=== PATIENT | male | born 1970 ===

== ENCOUNTER 2018-01-11 12:09 | Day surgery (SDC) | payer OTHER ==
[2018-01-09 10:47] VITALS: BMI 26.6
[2018-01-11] MEDS ORDERED: Ciprofloxacin 400mg/200ml D5W 400 MG/200 ML BAG IVPB ONE (14:08)
[2018-01-11] MEDS ORDERED: Iohexol 240 (50 ml) ONE (14:09)
[2018-01-11] MEDS ORDERED: Lidocaine 2% Jelly (Uro-Jet) ONE (14:09)
[2018-01-11] MEDS ORDERED: Propofol 10 mg/ml Inj (20 ML) ONE (14:18)
[2018-01-11] MEDS ORDERED: Midazolam 2 MG/2 ML VIAL ONE (14:19)
[2018-01-11] MEDS ORDERED: HYDROmorphone 0.5 mg/0.5 ml ISec IVP PRN (15:15)
[2018-01-11 15:33] VITALS: O2SAT 100
[2018-01-11] MEDS ORDERED: HYDROmorphone 0.5 mg/0.5 ml ISec ONE (15:38)
--- NOTE | 2018-01-11 16:24 | RAD ---
Date of service: 01/11/2018 PROCEDURE: Intraoperative Fluoroscopy. HISTORY: LEFT URETERAL STONE FINDINGS: Fluoroscopic assistance was provided. Fluoroscopy time = 73.7 sec. Radiation dose = 0.93275 mGy-cm. The please refer to the operative report from [facility].
[2018-01-11 16:42] VITALS: RESP 18
[2018-01-11 18:39] VITALS: BP 116/62; PULSE 84; TEMP 97.8
--- NOTE | 2018-01-12 06:54 | OP ---
PROCEDURE DATE: 01/11/2018 PREOPERATIVE DIAGNOSES: Left upper ureteral stone, ureteral stent. POSTOPERATIVE DIAGNOSES: Left upper ureteral stone, ureteral stent. PROCEDURE: Cystoscopy, removal of stent, ureteroscopy, laser lithotripsy, insertion of stent. SURGEON: Negro Michael MD DESCRIPTION OF PROCEDURE: While the patient in lithotomy position, genitalia prepped and draped in sterile fashion. Cystoscopy done. The stent grasped and removed. Sensor wire inserted. The stone seen on the upper ureter. No change in position. Using the long ureteroscope, the scope inserted up to the stone. The stone seen using holmium laser, low power in the beginning, high power at the end to fragment the stone. The stone fragmented in to many pieces which will be able to pass. The patient tolerated the procedure well after the fragmentation, the scope removed. A #6 [place] stent inserted, positioned between the kidney and the bladder, the patient tolerated the procedure well. Transferred to the recovery room in stable condition. Negro Michael MD
== END 2018-01-11 18:30 | disposition home or self-care (01) ==
LOC: C.SDS 12:09
PROVIDERS: ATTEND Specialist
DX: N20.1 Calculus of ureter (principal)
CPT/HCPCS: 52356; J0744; J1170